=== PATIENT | female | born 1945 | race African-American/Black ===

== ENCOUNTER 2016-11-28 11:11 | Emergency (ER) | payer MEDICARE ==
[~2016-11-28] VITALS: Ht 170.2 cm; Wt 79.0 kg
[2016-11-28 11:13] VITALS: BP 166/77; PULSE 58; RESP 12; TEMP 98; O2SAT 100
[2016-11-28] MEDS ORDERED: LISINOPRIL 20 MG TAB PO ONE (16:15)
--- NOTE | 2016-11-28 16:17 | RADRPT ---
EXAM DATE/TIME: 11/28/2016 15:57 [place] COMPARISON: No previous studies available for comparison. INDICATIONS : Palpitations. MEDICAL HISTORY : Hypertension. SURGICAL HISTORY : None. ENCOUNTER: Initial ACUITY: 2 days PAIN SCORE: 0/10 LOCATION: Bilateral chest FINDINGS: A single view of the chest demonstrates the lungs to be symmetrically aerated without evidence of mas s, infiltrate or effusion. The cardiomediastinal contours are unremarkable. Osseous structures are intact. CONCLUSION: No acute disease. Rhett Bell MD on November 28, 2016 at 16:15 Board Certified Radiologist. This report was verified electronically.
--- NOTE | 2016-11-28 16:18 | PD ---
HPI Chief Complaint: Cardiac Complaint Time Seen by Provider: 16:13 Travel History International Travel<30 days: No Contact w/Intl Traveler<30days: No Traveled to known affect area: No History of Present Illness HPI 71-year-old female with history of hypertension, high cholesterol, presents to the ER today for 2 days history of palpitations, headache, lightheadedness. She states that her blood pressures have been elevated in the past few weeks and her primary care physician had increased her lisinopril level 220 mg twice a day because her blood pressure was 180s systolic last week. She denies any chest pains, shortness of breath, or any other symptoms. She does not know any exacerbating or alleviating factors. She denies being more stress than usual except for or a about her blood pressure. Modifying Factors: None Associated Signs & Symptoms: Elevated blood pressure, palpitations, lightheadedness Risk Factors: History of hypertension PFSH Social History Tobacco Use: No Allergies-Medications (Allergen,Severity, Reaction): Coded Allergies: Penicillin (Verified Allergy, Unknown, 11/28/16) Reported Meds & Prescriptions Reported Meds & Active Scripts Active Reported Aspirin EC Low Dose (Aspirin) 81 Mg Tabec 81 Mg PO DAILY Flonase Allergy Relief Nasal [place] (Fluticasone Nasal [place]) 50 Mcg/Act [place] 1 [place] EACH NARE DAILY Metoprolol Tartrate 25 Mg Tab 25 Mg PO BID Zestoretic (Lisinopril-Hctz) 20-12.5 Mg Tab 1 Tab PO DAILY Review of Systems Except as stated in HPI: all other systems reviewed are Neg Physical Exam Narrative GENERAL: Well-nourished, well-developed pleasant elderly female patient in no acute distress. SKIN: Warm and dry. HEAD: Normocephalic. EYES: No scleral icterus. No injection or drainage. NECK: Supple, trachea midline. CARDIOVASCULAR: Regular rate and rhythm without murmurs, gallops, or rubs. Pulses are present and equal bilaterally. RESPIRATORY: Breath sounds equal bilaterally. No accessory muscle use. GASTROINTESTINAL: Abdomen soft, non-tender, nondistended. MUSCULOSKELETAL: No cyanosis, or edema. BACK: Nontender without obvious deformity. No CVA tenderness. NEUROLOGICAL: Awake and alert. Cranial nerves II through XII intact. Motor and sensory grossly within normal limits. Five out of 5 muscle strength in all muscle groups. Normal speech. Data Data Last Documented VS Vital Signs Date Time Temp Pulse Resp B/P Pulse Ox O2 Delivery O2 Flow Rate FiO2 11/28/16 16:27 193/81 173/83 11/28/16 11:13 98.0 58 12 100 Room Air Orders Electrocardiogram (11/28/16 ) Basic Metabolic Panel (Bmp) (11/28/16 15:56) Ckmb (Isoenzyme) Profile (11/28/16 15:56) Complete Blood Count With Diff (11/28/16 15:56) Magnesium (Mg) (11/28/16 15:56) Prothrombin Time / Inr (Pt) (11/28/16 15:56) Act Partial Throm Time (Ptt) (11/28/16 15:56) Troponin I (11/28/16 15:56) Chest, Single Ap (11/28/16 15:56) Ecg Monitoring (11/28/16 15:56) Bilateral Bp Monitoring (11/28/16 15:56) Iv Access Insert/Monitor (11/28/16 15:56) Oximetry (11/28/16 15:56) Oxygen Administration (11/28/16 15:56) Lisinopril (Prinivil) (11/28/16 16:15) CKMB (11/28/16 16:25) CKMB% (11/28/16 16:25) Labs Laboratory Tests Test 11/28/16 16:25 White Blood Count 3.3 TH/MM3 Red Blood Count 4.11 MIL/MM3 Hemoglobin 12.3 GM/DL Hematocrit 36.7 % Mean Corpuscular Volume 89.4 FL Mean Corpuscular Hemoglobin 29.9 PG Mean Corpuscular Hemoglobin 33.4 % Concent Red Cell Distribution Width 15.0 % Platelet Count 139 TH/MM3 Mean Platelet Volume 11.3 FL Neutrophils (%) (Auto) 45.7 % Lymphocytes (%) (Auto) 37.8 % Monocytes (%) (Auto) 11.6 % Eosinophils (%) (Auto) 4.1 % Basophils (%) (Auto) 0.8 % Neutrophils # (Auto) 1.5 TH/MM3 Lymphocytes # (Auto) 1.3 TH/MM3 Monocytes # (Auto) 0.4 TH/MM3 Eosinophils # (Auto) 0.1 TH/MM3 Basophils # (Auto) 0.0 TH/MM3 CBC Comment DIFF FINAL Differential Comment Prothrombin Time 10.1 SEC Prothromb Time International 0.9 RATIO Ratio Activated Partial 24.2 SEC Thromboplast Time Sodium Level 131 MEQ/L Potassium Level 3.5 MEQ/L Chloride Level 94 MEQ/L Carbon Dioxide Level 30.8 MEQ/L Anion Gap 6 MEQ/L Blood Urea Nitrogen 17 MG/DL Creatinine 1.09 MG/DL Estimat Glomerular Filtration 60 ML/MIN Rate Random Glucose 92 MG/DL Calcium Level 9.3 MG/DL Magnesium Level 2.1 MG/DL Total Creatine Kinase 129 U/L Creatine Kinase MB LESS THAN 0.5 NG/ML Troponin I LESS THAN 0.02 NG/ML MDM Medical Decision Making Medical Screen Exam Complete: Yes Emergency Medical Condition: Yes Medical Record Reviewed: Yes Interpretation(s) EKG shows sinus bradycardia at a rate of 50 bpm with no signs of acute ST-T changes. Laboratory Tests Test 11/28/16 16:25 White Blood Count 3.3 TH/MM3 (4.0-11.0) Platelet Count 139 TH/MM3 (150-450) Mean Platelet Volume 11.3 FL (7.0-11.0) Monocytes (%) (Auto) 11.6 % (0.0-8.0) Eosinophils (%) (Auto) 4.1 % (0.0-4.0) Neutrophils # (Auto) 1.5 TH/MM3 (1.8-7.7) Activated Partial 24.2 SEC Thromboplast Time (24.3-30.1) Sodium Level 131 MEQ/L (136-145) Chloride Level 94 MEQ/L (98-107) Creatinine 1.09 MG/DL (0.50-1.00) Estimat Glomerular Filtration 60 ML/MIN (>89) Rate Creatine Kinase MB LESS THAN 0.5 NG/ML (0.5-3.6) Troponin I LESS THAN 0.02 NG/ML (0.02-0.05) Last 24 hours Impressions Chest X-Ray 11/28/16 8130 Signed Impressions: Service Date/Time: Monday, November 28, 2016 15:57 - CONCLUSION: No acute disease. Rhett Bell MD Differential Diagnosis Palpitations, hypertension, lightheadednessdysrhythmias versus dehydration versus metabolic issues versus hypertensive urgency Narrative Course Cardiac enzymes are negative. Chest x-ray shows no signs of acute pulmonary processes. Patient was given her lisinopril in the ER. On reevaluation at 5: 58 PM, her blood pressures down to 157/78. At this point, my plan would be to release her with follow-up closely to primary care doctor. Return for any worsening in symptoms as needed. The plan has been discussed with her and she states understanding. Diagnosis Primary Impression: ESSENTIAL (PRIMARY) HYPERTENSION Additional Impression: Palpitations Disposition: 01 DISCHARGE HOME Condition: Stable Hugo Newton MD Nov 28, 2016 16:18
[2016-11-28 16:27] VITALS: BP_SYST 173; BP_SYST 193; BP_DIAS 81; BP_DIAS 83
[2016-11-28 16:49] LABS: AUTOMATED NEUTROPHIL # 1.5 TH/MM3 (1.8-7.7); BASOPHIL % 0.8 % (0.0-2.0); EOSINOPHIL # 0.1 TH/MM3 (0-0.4); EOSINOPHIL % 4.1 % (0.0-4.0); HEMATOCRIT 36.7 % (35.0-46.0); HEMO FLAGS DIFF FINAL; LYMPH % 37.8 % (9.0-44.0); LYMPHOCYTE # 1.3 TH/MM3 (1.0-4.8); MEAN CELL VOLUME 89.4 FL (80.0-100.0); MEAN CORPUSCULAR HEMOGLOBIN 29.9 PG (27.0-34.0); MEAN CORPUSCULAR HGB CONC 33.4 % (32.0-36.0); MONO % 11.6 % (0.0-8.0); NEUT % 45.7 % (16.0-70.0); PLATELET COUNT 139 TH/MM3 (150-450); RED BLOOD COUNT 4.11 MIL/MM3 (4.00-5.30); WHITE BLOOD COUNT 3.3 TH/MM3 (4.0-11.0)
[2016-11-28] MEDS ORDERED: LISI-586 PO (16:51)
[2016-11-28] MEDS ORDERED: ASPI81TA2 PO (16:51)
[2016-11-28] MEDS ORDERED: FLUT1SPR5 EACH NARE (16:51)
[2016-11-28] MEDS ORDERED: METO25TA3 PO (16:51)
[2016-11-28 16:56] LABS: APTT (PATIENT) 24.2 SEC (24.3-30.1); INTERNATIONAL NORMALIZED RATIO 0.9 RATIO; PROTHROMBIN TIME - PATIENT 10.1 SEC (9.8-11.6)
[2016-11-28 17:36] LABS: ANION GAP 6 MEQ/L (5-15); BICARBONATE 30.8 MEQ/L (21.0-32.0); BLOOD UREA NITROGEN 17 MG/DL (7-18); CHLORIDE 94 MEQ/L (98-107); CREATINE KINASE 129 U/L (26-192); GLOMERULAR FILTRATION RATE 60 ML/MIN (>89); MAGNESIUM 2.1 MG/DL (1.5-2.5); POTASSIUM 3.5 MEQ/L (3.5-5.1); SODIUM (NA) 131 MEQ/L (136-145)
[2016-11-28 17:48] LABS: CKMB LESS THAN 0.5 NG/ML (0.5-3.6)
--- NOTE | 2016-11-29 08:54 | EKG ---
Date Performed: 11/28/2016 Time Performed: 13:25:18 PTAGE: 71 years EKG: SINUS BRADYCARDIA BORDERLINE ECG NO PREVIOUS TRACING DOCTOR: Roberto Trimble Interpretating Date/Time 11/29/2016 08:50:17
== END 2016-11-28 19:19 | disposition home or self-care (01) ==
LOC: NEPC 11:11
DX: I10 Essential (primary) hypertension (principal); R00.2 Palpitations; E78.00 Pure hypercholesterolemia, unspecified; R00.1 Bradycardia, unspecified
CPT/HCPCS: 71010; 80048; 82550; 82552; 83735; 84484; 85025; 85610; 85730; 93005